=== PATIENT | female | born 1945 | race Caucasian/White ===

== ENCOUNTER → 2023-05-17 | Outpatient (CLI) | payer MEDICARE, BC ==
--- NOTE | 2023-05-17 15:59 | US ---
EXAMINATION TYPE: US thyroid st tissue head/neck DATE OF EXAM: 05/17/2023 COMPARISON: NONE CLINICAL INDICATION: Female, 78 years old with history of R68.89, E07.9; Pt states difficulty swallow ing GLAND SIZE: Right Lobe: 4.1 x 1.4 x 1.5 cm Overall Parenchyma: heterogenous Left Lobe: 3.8 x 1.2 x 1.5 cm Overall Parenchyma: heterogenous Isthmus Thickness: 0.2 cm NODULES RIGHT: # of nodules measured on right: 0 LEFT: # of nodules measured on left: 0 ISTHMUS: # of nodules measured in the isthmus: 0 Hand Ii [employer] notes: Bilateral neck scanned, no evidence of lymphadenopathy. Bilateral thyroid heteroge neous without evidence of nodules. IMPRESSION: Heterogeneous glandular parenchyma which is a nonspecific finding. No discrete nodule.
== END | disposition home or self-care (01) ==
LOC: RADUSWWP 14:41
DX: R68.89 Other general symptoms and signs (principal); E07.9 Disorder of thyroid, unspecified
CPT/HCPCS: 76536

== ENCOUNTER → 2023-07-02 | Outpatient (CLI) | payer MEDICARE, BC ==
--- NOTE | 2023-07-02 14:23 | BD ---
EXAMINATION TYPE: Axial Bone Density DATE OF EXAM: 07/02/2023 CLINICAL HISTORY: 78 years old Female. ICD-10 CODE: M81.0 AGE RELATED OSTEOPOROSIS Height: 5 ft 4 in Weight: 166 FRAX RISK QUESTIONS: Alcohol (3 or more units per day): no Family History (Parent hip fracture): no Glucocorticoids (More than 3mos): no (Ex: prednisone, prednisolone, methylprednisolone, dexamethasone, and hydrocortisone). History of Fracture in Adulthood: no Secondary Osteoporosis: 1. Type 1 Diabetes: no 2. Hyperthyroidism: no 3. Menopause before 45: no 4. Malnutrition: no 5. Chronic liver disease: no Rheumatoid Arthritis: no Current Tobacco Use: no RISK FACTORS HISTORY OF: Surgery to Spine/Hip(right/left)/Wrist (right/left): no MEDICATIONS: Thyroid Medications yes Which medication: synthroid How Lon years Osteoporosis Medications: none EXAM MEASUREMENTS: Bone mineral densitometry was performed using the [employer] System. Bone mineral density as measured about the Lumbar spine is: ----- L1-L4(G/cm2): 1.434 T Score Values are as follows: ----- L1: 0.6 ----- L2: 2.0 ----- L3: 2.8 ----- L4: 2.7 ----- L1-L4: 2.1 Z Score Values are as follows: ----- L1: 2.1 ----- L2: 3.5 ----- L3: 4.3 ----- L4: 4.2 ----- L1-L4: 3.6 baseline Bone mineral density about the R hip (g/cm2): 0.942 Bone mineral density about the L hip (g/cm2): 0.935 T Score values are as follows: -----R Neck: -0.7 -----L Neck: -0.7 -----R Total: 0.0 -----L Total: 0.3 Z Score values are as follows: -----R Neck: 1.2 -----L Neck: 1.1 -----R Total: 1.7 -----L Total: 2.0 baseline FRAX%s: The graph provided illustrates a 10.1 % chance for a major osteoporotic fx and a 1.6 % chance for the hips probability for fx in 10 years time. IMPRESSION: Normal (Values between +1 and -1 indicate normal bone mass). Consider repeating this study in 5 year s or sooner if there is some new clinical indication. NOTE: T-SCORE=SD OF THE YOUNG ADULT MEAN.
--- NOTE | 2023-07-17 08:30 | MM ---
Reason for Exam: Screening (asymptomatic). Last mammogram was performed 1 year(s) and 11 month(s) ago. Patient History: Menarche at age 14. Patient has no children. Postmenopausal. Hormonal Contraceptives, from age 18 until age 54. Paternal aunt had ovarian cancer at or over age 50. Paternal cousin had ovarian cancer at or over age 50. Maternal cousin had ovarian cancer at or over age 50. Risk Values: Monique 5 year model risk: 1.7%. NCI Lifetime model risk: 3.1%. Prior Study Comparison: 08/09/2017 Bilateral Diagnostic Mammogram, [facility]. 05/16/2019 Bilateral Screening Mammogram, [facility]. 08/24/2021 Bilateral Screening Mammogram, [facility]. Tissue Density: There are scattered areas of fibroglandular density. Findings: Analyzed By CAD. Left breast biopsy clip. There is no suspicious group of microcalcifications or new suspicious mass. Benign-appearing calcifications right breast. Overall Assessment: Benign, BI-RAD 2 Management: Screening Mammogram of both breasts in [address] [facility] will attempt to contact patient to return for supplemental views and ultrasound if indicated. Patient should continue monthly self-breast exams. A clinical breast exam by your physician is recommended on an annual basis. This exam should not preclude additional follow-up of suspicious palpable abnormalities. Note on Monique scores and lifetime risk: 1. A Monique score greater than 3% is considered moderate risk. If this is the case, consider specialist referral to assess eligibility for a risk reducing agent. 2. If overall lifetime risk for the development of breast cancer is 20% or higher, the patient may qualify for future screening with alternating mammogram and breast MRI. Electronically signed and approved by: Mino Peralta DO
== END | disposition home or self-care (01) ==
LOC: RADMAMWWP 13:00
PROVIDERS: ATTEND Family Medicine
DX: Z12.31 Encounter for screening mammogram for malignant neoplasm of breast (principal); M81.0 Age-related osteoporosis without current pathological fracture; M85.89 Other specified disorders of bone density and structure, multiple sites; Z78.0 Asymptomatic menopausal state
CPT/HCPCS: 77063; 77067; 77080

== ENCOUNTER → 2024-11-13 | Outpatient (CLI) | payer MEDICARE, BC ==
--- NOTE | 2024-11-14 07:51 | MM ---
Reason for Exam: Screening (asymptomatic). Last mammogram was performed 1 year(s) and 4 month(s) ago. Patient History: Menarche at age 14. Patient has no children. Postmenopausal. Hormonal Contraceptives, from age 18 until age 54. Paternal aunt had ovarian cancer at or over age 50. Paternal cousin had ovarian cancer at or over age 50. Maternal cousin had ovarian cancer at or over age 50. Risk Values: Monique 5 year model risk: 1.7%. NCI Lifetime model risk: 2.9%. Prior Study Comparison: 05/16/2019 Bilateral Screening Mammogram, [facility]. 08/24/2021 Bilateral Screening Mammogram, [facility]. 07/02/2023 Bilateral MG 3D screening mammo w/cad, [facility]. Tissue Density: The breasts are heterogeneously dense, which may obscure small masses. Findings: Analyzed By CAD. There is no suspicious group of microcalcifications or new suspicious mass in either breast. Benign-appearing calcifications. Stable chronic nodularity. Overall Assessment: Benign, BI-RAD 2 Management: Screening Mammogram of both breasts in 1 year. . Patient should continue monthly self-breast exams. A clinical breast exam by your physician is recommended on an annual basis. This exam should not preclude additional follow-up of suspicious palpable abnormalities. Note on Monique scores and lifetime risk: 1. A Monique score greater than 3% is considered moderate risk. If this is the case, consider specialist referral to assess eligibility for a risk reducing agent. 2. If overall lifetime risk for the development of breast cancer is 20% or higher, the patient may qualify for future screening with alternating mammogram and breast MRI. [facility], , 11/14/2024 7:48 AM. Electronically signed and approved by: Pantera Rodríguez M.D. Radiologis
== END | disposition home or self-care (01) ==
LOC: RADMAMWWP 15:31
PROVIDERS: ATTEND Family Medicine
DX: Z12.31 Encounter for screening mammogram for malignant neoplasm of breast (principal); R92.333 Mammographic heterogeneous density, bilateral breasts; Z78.0 Asymptomatic menopausal state; Z92.0 Personal history of contraception
CPT/HCPCS: 77063; 77067